=== PATIENT | male | born 1960 | race Caucasian/White ===

== ENCOUNTER 2020-11-03 10:56 | Emergency (ER) | payer BC ==
[~2020-11-03] VITALS: Ht 180.3 cm; Wt 115.7 kg
[2020-11-03 11:44] LABS: BASO % 0.5 % (0.0-1.0); EOS # 0.2 10*3/uL (0.0-0.4); EOS % 2.3 % (1.0-4.0); HEMATOCRIT 44.7 % (42.0-52.0); LYMPH # 1.4 10*3/uL (1.3-4.4); LYMPH % 17.7 % (27.0-41.0); MEAN CELL VOLUME 89.4 fl (80.0-94.0); MEAN CORPUSCULAR HGB 29.8 pg (27.0-31.0); MEAN CORPUSCULAR HGB CONC 33.3 g/dl (33.0-37.0); MONO # 0.9 10*3/uL (0.1-1.0); MONO % 11.3 % (3.0-9.0); NEUT # 5.2 10*3/uL (2.3-7.9); NEUT % 68.1 % (47.0-73.0); RED CELL DISTRI WIDTH 13.1 % (0-14.5); WHITE BLOOD COUNT 7.7 10*3/uL (4.8-10.8)
[2020-11-03 11:53] LABS: ACT PARTIAL THROMBO TIME 27.6 SECONDS (20.0-32.1); BUN 16 mg/dl (7-24); CHLORIDE 107 mmol/L (98-107); CREATININE 1.04 mg/dL (0.70-1.30); POTASSIUM 3.8 mmol/L (3.5-5.1); SODIUM 139 mmol/L (136-145)
[2020-11-03 12:00] LABS: PLATELET COUNT AUTOMATED 127 10*3/uL (130-400)
[2020-11-03] MEDS ORDERED: ELIQUIS5 M1 PO (13:08)
== END 2020-11-03 13:30 | disposition home or self-care (01) ==
LOC: ED 10:56
PROVIDERS: Emergency Medicine
DX: I82.402 Acute embolism and thrombosis of unspecified deep veins of left lower extremity (principal)